=== PATIENT | female | born 1995 | race Asian ===

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

== ENCOUNTER 2017-04-07 13:49 | Emergency (ER) | payer OTHER ==
[~2017-04-07] VITALS: Ht 167.6 cm; Wt 70.8 kg
[2017-04-07 15:27] VITALS: BP 122/88; TEMP 98.4
== END 2017-04-07 15:27 | disposition home or self-care (01) ==
LOC: ED 13:49
DX: R42 Dizziness and giddiness (principal); R51 Headache; J01.90 Acute sinusitis, unspecified
CPT/HCPCS: 81000; 81025; 99282

== ENCOUNTER 2017-05-31 08:35 | Emergency (ER) | payer OTHER ==
[~2017-05-31] VITALS: Ht 167.6 cm; Wt 74.8 kg
[2017-05-31 08:46] VITALS: BP 128/82; TEMP 98.4
== END 2017-05-31 09:04 | disposition home or self-care (01) ==
LOC: ED 08:35
DX: R11.10 Vomiting, unspecified (principal); R51 Headache

== ENCOUNTER 2017-09-12 08:10 | Emergency (ER) | payer OTHER ==
[~2017-09-12] VITALS: Ht 167.6 cm; Wt 63.5 kg
[2017-09-12 08:15] VITALS: TEMP 98.5
[2017-09-12 08:56] LABS: PLATELET COUNT 363 K/uL (152-353)
[2017-09-12 09:04] LABS: POTASSIUM 4.2 mmol/L (3.6-5.2); SODIUM 135 mmol/L (136-145)
[2017-09-12 09:15] VITALS: BP 118/84
== END 2017-09-12 09:44 | disposition home or self-care (01) ==
LOC: ED 08:10
PROVIDERS: Family Medicine
DX: R42 Dizziness and giddiness (principal); R51 Headache; O99.011 Anemia complicating pregnancy, first trimester
CPT/HCPCS: 36415; 80053; 81000; 81025; 85027; 99283